=== PATIENT | female | born 1940 | race Caucasian/White ===

== ENCOUNTER 2020-03-26 15:27 | Emergency (ER) | payer MEDICARE, OTHER ==
--- NOTE | 2020-03-26 15:48 | ER Document Report ---
ED Medical Screen (RME) - General Chief Complaint: High Blood Pressure Stated Complaint: BLOOD PRESSURE PROBLEMS Time Seen by Provider: 03/26/20 15:42 Information source: Patient Notes: Patient states that she kicked an object at home yesterday injuring the left great toe and it bled a little. Patient states she went to the urgent care and they told her her toe was infected and they went and put her on antibiotics. They became concerned that patient's blood pressure was up and wanted her to come here for further evaluation. Patient denies any chest pain shortness of breath lightheadedness or dizziness. Patient denies any headache. Patient states that occasionally she becomes short of breath when she becomes anxious but denies of symptoms at this time. Patient states she was told that she needed to be evaluated in case her blood pressure was causing her stents to become blocked or for her to have a stroke. I have greeted and performed a rapid initial assessment of this patient. A comprehensive ED assessment and evaluation of the patient, analysis of test results and completion of the medical decision making process will be conducted by additional ED providers. - Related Data Allergies/Adverse Reactions: codeine Allergy (Verified 03/26/20 15:45) fentanyl Allergy (Verified 03/26/20 15:45) Physical Exam - Vital signs Vitals: Temp 98.1 F 03/26/20 15:28 - General General appearance: Appears well, Alert Notes: Left great toe tenderness, swelling blood noted along nail margin Course - Vital Signs Vital signs: Temp Pulse Resp BP Pulse Ox 98.1 F 93 18 159/104 H 95 03/26/20 15:37 03/26/20 15:37 03/26/20 15:37 03/26/20 15:37 03/26/20 15:37
--- NOTE | 2020-03-26 16:25 | RADIOLOGY REPORT (SQ) ---
EXAM DESCRIPTION: TOE LEFT IMAGES COMPLETED DATE/TIME: 03/26/2020 4:08 pm REASON FOR STUDY: toe injury, L gr toe COMPARISON: None. NUMBER OF VIEWS: Three views. TECHNIQUE: AP, lateral, and oblique images acquired of the left first toe. LIMITATIONS: None. FINDINGS: MINERALIZATION: Normal. BONES: No acute fracture or dislocation. No worrisome bone lesions. No significant osteophytes. JOINTS: No erosions. No devon-articular osteopenia. No chondrocalcinosis. SOFT TISSUES: No swelling. No calcifications. OTHER: No other significant finding. IMPRESSION: NO SIGNIFICANT RADIOGRAPHIC ABNORMALITY. COMMENT: SITE OF TRAUMA/COMPLAINT MARKED/STAMP COMPLETED: YES. TECHNICAL DOCUMENTATION: JOB ID: [id number] [employer]- All Rights Reserved Reading location - IP/workstation name: [email or web address]
[2020-03-26] MEDS ORDERED: LABETALOL HCL INJ 20 MG/4 ML DISP.SYRIN IV ONE (16:46)
[2020-03-26] MEDS ORDERED: HYDRALAZINE HCL INJ/PF 20 MG/1 ML SDV IV ONE (17:30)
[2020-03-26 17:43] LABS: ABSOLUTE EOSINOPHILS # (AUTO) 0.1 10^3/uL (0.0-0.6); ABSOLUTE LYMPHOCYTES (AUTO) 1.8 10^3/uL (0.5-4.7); ABSOLUTE MONOCYTES (AUTO) 0.7 10^3/uL (0.1-1.4); ABSOLUTE NEUT (AUTO) 3.4 10^3/uL (1.7-8.2); BASOPHILS % (AUTO) 0.4 % (0-2); EOSINOPHILS % (AUTO) 1.7 % (0-6); HEMATOCRIT 41.2 % (36.0-47.0); HEMOGLOBIN 14.2 g/dL (12.0-15.5); LYMPHOCYTES % (AUTO) 30.4 % (13-45); MEAN CORPUSCULAR HEMOGLOBIN 31.8 pg (27.0-33.4); MEAN CORPUSCULAR HGB CONC 34.5 g/dL (32.0-36.0); MEAN CORPUSCULAR VOLUME 92 fl (80-97); MONOCYTES % (AUTO) 11.5 % (3-13); PLATELET COUNT 232 10^3/uL (150-450); RED BLOOD COUNT 4.48 10^6/uL (3.72-5.28); RED CELL DISTRIBUTION WIDTH 13.4 % (11.5-14.0); TOTAL CELLS COUNTED % (AUTO) 100 %
[2020-03-26 18:03] LABS: ALBUMIN 4.3 g/dL (3.5-5.0); ALKALINE PHOSPHATASE 101 U/L (38-126); ANION GAP 8 (5-19); ASPARTATE AMINO TRANSFERASE 45 U/L (14-36); BILIRUBIN,TOTAL 0.5 mg/dL (0.2-1.3); BLOOD UREA NITROGEN 15 mg/dL (7-20); CALCIUM 9.4 mg/dL (8.4-10.2); CARBON DIOXIDE 28 mmol/L (22-30); CHLORIDE 104 mmol/L (98-107); GLUCOSE 99 mg/dL (75-110); POTASSIUM 3.9 mmol/L (3.6-5.0); TOTAL PROTEIN 7.5 g/dL (6.3-8.2)
--- NOTE | 2020-03-26 18:07 | RADIOLOGY REPORT (SQ) ---
EXAM DESCRIPTION: CHEST SINGLE VIEW IMAGES COMPLETED DATE/TIME: 03/26/2020 5:53 pm REASON FOR STUDY: htn COMPARISON: None. EXAM PARAMETERS: NUMBER OF VIEWS: One view. TECHNIQUE: Single frontal radiographic view of the chest acquired. RADIATION DOSE: NA LIMITATIONS: None. FINDINGS: LUNGS AND PLEURA: No opacities, masses or pneumothorax. No pleural effusion. MEDIASTINUM AND HILAR STRUCTURES: No masses. Contour normal. HEART AND VASCULAR STRUCTURES: Heart normal in size. Normal vasculature. BONES: No acute findings. Degenerative changes in the spine. HARDWARE: None in the chest. OTHER: No other significant finding. IMPRESSION: NO ACUTE RADIOGRAPHIC FINDING IN THE CHEST. TECHNICAL DOCUMENTATION: JOB ID: [id number] [employer]- All Rights Reserved Reading location - IP/workstation name: [email or web address]
[2020-03-26 18:15] LABS: NT PRO BNP 109 pg/mL (<450)
[2020-03-26 18:16] LABS: TROPONIN I < 0.012 ng/mL
--- NOTE | 2020-03-26 18:58 | ER Document Report ---
Entered by DAISHA CANDELARIA SCRIBE 03/26/20 1640 Acting as scribe for:PHILIP HERNANDEZ MD ED General - General Chief Complaint: High Blood Pressure Stated Complaint: BLOOD PRESSURE PROBLEMS Time Seen by Provider: 03/26/20 15:42 Information source: Patient Notes: This 80-year-old female presents to the emergency department as requested by the urgent care for high blood pressure. Patient presented to the urgent care today complaining of left great toe pain that began three nights ago. Patient explains that she had no injury to the toe and she started soaking her toe in Epsom salt three times a day. Patient said that the pain and redness worsened last night. Patient reports a history of an ingrown toe nail on the same toe that she has seen a electronic equipment maint tech for previously. Patient denies chest pain. Patient states that she has had a recent change to her hypertension medication but does not check her blood pressure regularly so is unsure whether the change in medication has been effective. Patient mentions that she is visiting her daughter and is not from the area. Patient states that she is established with a electronic equipment maint tech in her home town that she will see later next month. - Related Data Allergies/Adverse Reactions: codeine Allergy (Verified 03/26/20 15:45) fentanyl Allergy (Verified 03/26/20 15:45) Past Medical History - General Information source: Patient - Social History Smoking Status: Never Smoker Cigarette use (# per day): No Chew tobacco use (# tins/day): No Family History: Reviewed & Not Pertinent Patient has suicidal ideation: No Patient has homicidal ideation: No - Past Medical History Cardiac Medical History: Reports: Hx Heart Attack, Hx Hypertension Endocrine Medical History: Reports: Hx Diabetes Mellitus Type 2 Musculoskeletal Medical History: Reports Hx Arthritis Psychiatric Medical History: Reports: Hx Anxiety Past Surgical History: Reports: Hx Coronary Stent - X5 last one in 2017, Hx Nose Surgery - X3 Review of Systems - Review of Systems Constitutional: No symptoms reported EENT: No symptoms reported Cardiovascular: See HPI. denies: Chest pain Respiratory: No symptoms reported Gastrointestinal: No symptoms reported Genitourinary: No symptoms reported Female Genitourinary: No symptoms reported Musculoskeletal: See HPI, Other - Toe pain and swelling Skin: No symptoms reported Hematologic/Lymphatic: No symptoms reported Neurological/Psychological: No symptoms reported -: Yes All other systems reviewed and negative Physical Exam - Vital signs Vitals: Temp 98.1 F 03/26/20 15:28 - Notes Notes: Physical Exam: General: Alert, appears well. HEENT: Normocephalic. Atraumatic. PERRL. Extraocular movements intact. Oropharynx clear. Neck: Supple. Non-tender. Respiratory: No respiratory distress. Clear and equal breath sounds bilaterally. Cardiovascular: Regular rate and rhythm. Abdominal: Normal Inspection. Non-tender. No distension. Normal Bowel Sounds. Back: No gross abnormalities. Extremities: Moves all four extremities. Upper extremities: Normal inspection. Normal ROM. Lower extremities: No edema. Normal ROM. Left great toe has erythema and swelling that has an ingrown toenail. Toe is tender to palpation. Neurological: Normal cognition. AAOx4. Normal speech. Psychological: Normal affect. Normal Mood. Skin: Warm. Dry. Normal color. Course - Re-evaluation Re-evalutation: 03/26/20 17:54 Patient is having no acute signs of chest pain shortness of breath altered mental status. Patient has a longstanding history of high blood pressure and has 6 stents in her heart. Denies any chest pain. 03/26/20 18:51 Patient reports she feels fine having no symptoms of any shortness of breath or chest pain or headache. - Vital Signs Vital signs: Temp Pulse Resp BP Pulse Ox 98.0 F 93 20 179/94 H 94 03/26/20 18:44 03/26/20 15:37 03/26/20 18:44 03/26/20 18:44 03/26/20 18:44 - Laboratory Result Diagrams: 03/26/20 17:31 03/26/20 17:31 Laboratory results interpreted by me: 03/26/20 17:31 AST 45 H ALT 41 H - Diagnostic Test Radiology reviewed: Image reviewed, Reports reviewed Radiology results interpreted by me: 03/26/20 17:53 Radiographs left great toe shows no acute process no acute radiographic orthopedic bony abnormality. Chest x-ray 1 view shows Left ventricular hypertrophy borderline cardiomegaly hilar fullness with no signs of CHF. No infiltrate. - EKG Interpretation by Me Additional EKG results interpreted by me: 03/26/20 17:52 Twelve-lead EKG shows a normal sinus rhythm rate of 83 left anterior fascicular block anteroseptal infarct age indeterminate no acute ST changes at this time. Discharge - Discharge Clinical Impression: Ingrown toenail of left foot with infection, Hypertension, uncontrolled Condition: Stable Disposition: HOME, SELF-CARE Instructions: High Blood Pressure, Requiring Treatment (OM) Additional Instructions: Ingrown Nail You have an ingrown nail. An ingrown nail develops when the tissues near the nail are pushed up over the nail. Irritation develops and infection follows . An ingrown nail can result from poorly fitting shoes, improper cutting of the nail, or minor injuries. Once the tissues at the edge of the nail swell, the problem can become chronic. Emergency treatment is usually removal of the portion of the nail that has become ingrown. This is followed by hot soaks three to four times a day. Antibiotics may be necessary if infection is present. After the toe heals, make certain there is no pressure on the area, either from shoes or another toe. Trim the toenails straight across, not curved back into the corners. If ingrown nails recur, an operation to remove excess tissue near the nail, or narrowing of the nail, may be necessary. Call the doctor or return if swelling increases, or red streaks, swelling, or swollen glands are found. Begin antibiotics that were prescribed to you from the urgent care clinic today. Continue their instructions regarding taking antibiotics Tylenol as needed for pain. Follow-up with electronic equipment maint tech for further evaluation and definitive care of your ingrown toenail. You may take Tylenol as needed for pain. You have hypertension out of control today. From what I understand you recently had been increased on taken antihypertensive medications however there has not been any monitoring of what those medications have done to improve your blood pressure. Today's elevated blood pressure may be circumstantial as it was related to going to the emergency urgent care and having manipulation of the toe and developed pain and blood pressure elevation. The elevation of your blood pressure today has not caused you to have a stroke or heart attack there has been improvement in your blood pressure have been given 1 dose of antihypertensive medications here in the ED. Continue your usual medications that you take for hypertension as well as your medications you take otherwise including diabetes medication. Please monitor your blood pressure and your diabetes on a daily basis. I personally performed the services described in the documentation, reviewed and edited the documentation which was dictated to the scribe in my presence, and it accurately records my words and actions.
[2020-03-26 19:49] VITALS: BP 165/93
--- NOTE | 2020-03-27 10:34 | EKG REPORT ---
SEVERITY:- ABNORMAL ECG - SINUS RHYTHM LEFT ANTERIOR FASCICULAR BLOCK PROBABLE ANTEROSEPTAL INFARCT, AGE INDETERM : Confirmed by: Mikel Hull 27-Mar-2020 10:33:29
== END 2020-03-26 19:10 | disposition home or self-care (01) ==
LOC: ER 15:27
DX: I10 Essential (primary) hypertension (principal); L60.0 Ingrowing nail; I44.4 Left anterior fascicular block; Z88.6 Allergy status to analgesic agent; Z88.5 Allergy status to narcotic agent; Z95.5 Presence of coronary angioplasty implant and graft
CPT/HCPCS: 93005; 99284; 96374; 36415; 85025; 80053; 84484; 83880; 71045; 73660; 93010; J3490